=== PATIENT | male | born 1945 | race Caucasian/White ===

== ENCOUNTER 2018-02-07 10:53 | Emergency (ER) | payer MEDICARE, OTHER ==
[~2018-02-07] VITALS: Ht 170.2 cm; Wt 84.8 kg
[2018-02-07] MEDS ORDERED: GASTROGRAFIN 120 ML SOL ONE (11:39)
[2018-02-07 12:20] LABS: Hematocrit 37.6 % (41.0-53.0); Hemoglobin 12.7 g/dL (13.5-17.5); Mean Corpuscular Hemoglobin 32.3 pg (28.0-32.0); Mean Corpuscular Hgb Conc. 33.7 g/dL (32.0-36.0); Mean Corpuscular Volume 95.7 fL (80.0-100.0); Platelet Count (auto) 80 10^3/uL (140-450); Red Blood Cells 3.93 10^6/uL (4.5-5.90); Red Cell Distribution Width 15.1 % (11.8-14.3); White Blood Cell 2.4 10^3/uL (4.4-10.8)
[2018-02-07 12:27] LABS: Basophils % (manual) 0 (0.0-2.0); Blast Cells 0; Metamyelocytes % 0; Myelocytes % 0; Promyelocytes % 0; Reactive Lymphocytes 0
[2018-02-07 12:28] LABS: Albumin 2.6 g/dL (3.4-5.0); Calcium 8.1 mg/dL (8.5-10.1); Potassium 3.3 mmol/L (3.5-5.1)
[2018-02-07 12:31] LABS: BUN/Creatinine Ratio 30.8; Bilirubin, Total 0.7 mg/dL (0.2-1.0); Total Protein 6.6 g/dL (6.4-8.2)
[2018-02-07 12:56] LABS: Band Neutrophils % (manual) 2; Lymphocytes % (manual) 6 (10.0-50.0); Monocytes % (manual) 38 (0-12)
[2018-02-07 12:57] LABS: Eosinophils % (manual) 2 (0-7)
[2018-02-07 13:12] VITALS: BP 118/69
== END 2018-02-07 13:06 | disposition home or self-care (01) ==
LOC: EDBD 10:53 → ER 11:01
DX: D72.819 Decreased white blood cell count, unspecified (principal); E87.6 Hypokalemia; Z46.59 Encounter for fitting and adjustment of other gastrointestinal appliance and device; Z85.01 Personal history of malignant neoplasm of esophagus
CPT/HCPCS: 36415; 43760; 74018; 80053; 85007; 85027; 94761; 99284; Q9963